=== PATIENT | female | born 1960 | race Caucasian/White ===

== ENCOUNTER 2017-02-08 09:19 | Outpatient (CLI) | payer BC ==
[2017-02-08 10:08] LABS: #Basophils 0.1 thou/uL (0.0-0.2); #Eosinphils 0.1 thou/uL (0.0-0.7); #Lymphocytes 2.7 thou/uL (1.20-3.40); #Monocytes 0.5 thou/uL (0.11-0.59); #Neutrophils 3.4 thou/uL (1.40-6.50); %Basophils 1.2 % (0.0-1.0); %Eosinophils 2.1 % (0.0-10.0); %Lymphocytes 39.6 % (21.0-51.0); %Monocytes 7.7 % (0.0-10.0); %Neutrophils 49.4 % (42.0-75.0); Hemoglobin 14.8 g/dL (12.0-16.0); Mean Corpuscular HGB CONC 34.8 g/dL (32.0-36.0); Mean Corpuscular Hemoglobin 31.5 pg (27.0-31.0); Mean Corpuscular Volume 90.6 fl (81.0-99.0); Mean Platelet Volume 5.9 fL (7.4-10.4); Platelet Count 257 thou/uL (130-400); RBC Distribution Width 12.7 % (11.5-14.5); Red Blood Cell (RBC) Count 4.68 mill/uL (4.20-5.40); White Blood Cell (WBC) Count 6.9 thou/uL (4.8-10.8)
[2017-02-08 10:17] LABS: ALT (SGPT) 17 U/L (8-55); AST (SGOT) 17 U/L (5-34); Albumin 4.4 g/dL (3.5-5.0); Alkaline Phosphatase 107 U/L (40-150); Anion Gap 12 mmol/L (10-20); BUN (Urea Nitrogen) 16 mg/dL (9.8-20.1); Bilirubin, Total 0.6 mg/dL (0.2-1.2); Calc. Creatinine Clearance 0 mL/min (70-130); Calcium 9.6 mg/dL (7.8-10.44); Carbon Dioxide 27 mmol/L (22-29); Chloride 108 mmol/L (98-107); Estimated GFR-MDRD 81; Globulin 2.8 g/dL (2.4-3.5); Glucose 88 mg/dL (70-105); Potassium 4.4 mmol/L (3.5-5.1); Protein, Total 7.2 g/dL (6.0-8.3); Sodium 143 mmol/L (136-145)
== END 2017-02-08 09:20 ==
LOC: HPCALD 09:19
PROVIDERS: ATTEND Family Medicine
DX: K52.9 Noninfective gastroenteritis and colitis, unspecified (principal); R10.31 Right lower quadrant pain
CPT/HCPCS: 36415; 80053; 84443; 85025

== ENCOUNTER 2017-02-19 08:21 | Outpatient (CLI) | payer BC ==
--- NOTE | 2017-02-19 13:05 | ULT ---
ULTRASOUND ABDOMEN COMPLETE: HISTORY: Abdominal pain, adnexal pain, flank pain. COMPARISON: None. FINDINGS: The liver measures 14 cm in length. Visualized portions of the pancreas are limited and not well se en. The common bile duct measures under 6 mm. Main portal vein is patent with antegrade flow. The right kidney measures 11.2 x 3.9 x 4.9 cm without mass, hydronephrosis, or calcifications. The aorta and IVC are unremarkable. The spleen measures 8.1 x 3.5 cm. The left kidney measures 11 x 4.9 x 5.6 cm. No mass, hydronephro sis, or abnormal calcifications. Gallbladder wall thickness is less than 3 mm and is normal. No cholelithiasis. IMPRESSION: Normal abdominal ultrasound. POS: [facility]
--- NOTE | 2017-02-19 13:06 | ULT ---
ULTRASOUND PELVIS TRANSABDOMINAL AND TRANSVAGINAL: HISTORY: Pelvic pain. COMPARISON: Pelvic ultrasound 02/13/14. FINDINGS: Uterus and left ovary have been removed. The right ovary measures 1.7 x 1.3 x 1.9 cm with adequate vascular flow peripherally. Urinary bladder is incompletely distended. IMPRESSION: No acute pelvic findings. POS: [facility]
== END 2017-02-19 08:22 | disposition home or self-care (01) ==
LOC: BURULT 08:21
PROVIDERS: ATTEND Family Medicine
DX: R10.2 Pelvic and perineal pain (principal); R10.9 Unspecified abdominal pain
CPT/HCPCS: 76700; 76856

== ENCOUNTER 2017-02-22 09:32 | Outpatient (CLI) | payer BC ==
--- NOTE | 2017-02-22 14:28 | RAD ---
RIGHT HIP 2 VIEWS: DATE: 02/22/17. Two views showed no fracture, joint space narrowing, or other articular abnormality. IMPRESSION: No acute findings POS: [facility]
--- NOTE | 2017-02-22 14:28 | RAD ---
LUMBAR SPINE THREE VIEWS 02/22/2017 FINDINGS: Scoliosis, convex left, is present, with the apex of the curve in the upper lumbar region. Osteophy shruthi are seen at the upper levels, in particular, though smaller ones are present in the lower lumbar levels. No compression fractures are seen. There is a small amount of disk space narrowing at L1- L2 and at L2-L3. Looking at a 2007 MRI, this has probably gotten a bit narrower in the interval. T he disk spaces below L3 appear normal. The SI joints are symmetrical. IMPRESSION: 1. Mild scoliosis with scattered degenerative changes. 2. Disk space narrowing at L1-L2 and at L2-L3 that is slightly more pronounced than in 2007. POS: [facility]
== END 2017-02-22 09:33 | disposition home or self-care (01) ==
LOC: BURRAD 09:32
PROVIDERS: ATTEND Family Medicine
DX: M54.41 Lumbago with sciatica, right side (principal); G89.29 Other chronic pain; M51.36 Other intervertebral disc degeneration, lumbar region; M41.9 Scoliosis, unspecified
CPT/HCPCS: 72100